=== PATIENT | female | born 1930 | race Caucasian/White ===

== ENCOUNTER → 2016-12-04 16:58 | Outpatient (CLI) | payer MEDICARE, OTHER ==
[2015-11-26 12:36] VITALS: BMI 27.0
[~2016-12-04 16:58] MED LIST: ADVAIR 250/501 DISK INH; AVAPRO300 MG PO; BACTRIM DS TABL1 TAB PO; CELEBREX200 MG PO; CLARINEX5 MG PO; COLACE100 MG PO; COREG6.25 MG PO; CRESTOR20 MG PO; DALIRESP500 MCG PO; DUONEB 2.5-0.5 M3 ML UPD; GABAPENTIN100 MG PO; HYDROCHLOROTH12.5 M1 PO; HYDROCODON-ACE1 EAC7 PO; IPRAT-ALBUT 0.5-3 ML UPD; IRON; K-DUR20 MEQ PO; KEPPRA1000 MG PO; LASIX40 MG PO; LEVAQUIN750 MG PO; LISINOPRIL10 MG PO; MAG-OX 400 MG400 MG PO; MUCINEX600 MG PO; NITROSTAT0.3 MG SL; NORVASC10 MG PO; NORVASC5 MG PO; PLAVIX75 MG PO; PRADAXA75 MG PO; PREMARIN0.625 MG PO; PRILOSEC20 MG PO; PRINIVIL20 MG PO; PROZAC10 MG PO; SINGULAIR10 MG PO; THERMOTABS 1 GM1 GM PO; XOPENEX HFA15 GM INH; ZOFRAN ODT4 MG/UDTAB PO
[2016-12-04 18:10] LABS: ANION GAP 11.1 mmol/L (8-16); CALCIUM 8.6 mg/dL (8.5-10.1); CARBON DIOXIDE 29.7 mmol/L (21.0-32.0); POTASSIUM - SERUM 3.8 mmol/L (3.5-5.1)
== END | disposition home or self-care (01) ==
LOC: D.LABREF 16:58
PROVIDERS: Emergency Medicine
DX: E87.1 Hypo-osmolality and hyponatremia (principal)